=== PATIENT | male | born 1980 | race Two or more races ===

== ENCOUNTER 2023-10-25 17:46 | Emergency (ER) | payer OTHER ==
[~2023-10-25] VITALS: Ht 177.8 cm; Wt 91.0 kg
[2023-10-25 18:23] VITALS: BP 127/87; PULSE 95; RESP 18; TEMP 98.5; O2SAT 97
== END 2023-10-25 19:45 | disposition left against medical advice (07) ==
LOC: ER 19:18
DX: R10.13 Epigastric pain (principal); Z53.21 Procedure and treatment not carried out due to patient leaving prior to being seen by health care provider
CPT/HCPCS: 99281